=== PATIENT | male | born 1960 | race Caucasian/White ===

== ENCOUNTER 2016-09-12 21:07 | Emergency (ER) | payer OTHER ==
--- NOTE | ~2016-09-12 | CR63 ---
[facility] A Service of [facility] RADIOLOGY TEXT RESULTS PATIENT: AZUL NOLEN LOCATION: SED : 64 UNIT #: [id number] AGE: [address]: BETHANY VILLEGAS PA-C SEX: M ORDER DR: [id number] [address] [address] [id number] MR#: [id number] Acc #: [id number] NAME: AZUL NOLEN : 1960 SEX: M STUDY DATE/TIME: 09/12/2016 21:19 UNIT: SED ROOM: STUDY DESCRIPTION: CR Chest 2 View Attending Physician: Bethany Villegas Pa-C Ordering Physician: Physician Non-Staff Primary Care Physician: No Primary Care Physician MEDICAL IMAGING REPORT This report is preliminary unless electronic signature is present. FINDINGS PA and lateral chest. HISTORY Fever, cough and chills for 1 week. FINDINGS 2 views of the chest demonstrate patchy subsegmental infiltrate in the posterior right lower lobe. This is nonspecific, but could be due to pneumonia. Short-term followup chest x-ray is recommended to document resolution. No focal infiltrates in the remainder of the lungs. Mild additional linear atelectasis in the right lung base. Cardiac size and pulmonary vascularity are normal. Mild pleural thickening in the lung apices. IMPRESSION 1. Patchy subsegmental infiltrate in the posterior right lower lobe. Although nonspecific, this could be due to pneumonia. Short-term followup chest x-ray is recommended to document resolution. 2. Additional mild linear atelectasis or scarring in the right base. Dictated by... Anthony Stern M.D. THIS IS AN ELECTRONICALLY VERIFIED REPORT Anthony Stern M.D. at 09/13/2016 3:05 PM DFL/gz TD: 09/13/2016 09:49 JOB #: [id number] [facility] A Service of [facility] RADIOLOGY TEXT RESULTS PATIENT: AZUL NOLEN LOCATION: SED : 64 UNIT #: [id number] AGE: [address]: BETHANY VILLEGAS PA-C SEX: M ORDER DR: MEDICAL IMAGING REPORT Page 1 of 1
[2016-09-12 21:08] LABS: INFLUENZA A NEG (NEG); INFLUENZA B POS (NEG)
== END 2016-09-12 21:55 | disposition home or self-care (01) ==
LOC: SED 21:07
PROVIDERS: Physician Assistant
DX: J10.1 Influenza due to other identified influenza virus with other respiratory manifestations (principal); J18.9 Pneumonia, unspecified organism; Z77.22 Contact with and (suspected) exposure to environmental tobacco smoke (acute) (chronic)
CPT/HCPCS: 71020; 87804; 99283